=== PATIENT | female | born 1990 | race Caucasian/White ===

== ENCOUNTER 2018-10-20 16:53 | Inpatient (IN) | payer OTHER ==
[~2018-10-20 16:53] MED LIST: PRENATAL VITAM1 EAC7 PO
--- NOTE | 2018-10-20 18:58 | PR ---
[facility] [address], [place] [address] Signed Progress Notes IP Datetime Report Generated by CPN: 10/20/2018 18:57 PROGRESS NOTES: [id number] Impression: Normal progression of labor; Reassuring heart rate Procedures: Artificial ROM Plan: Continue present management Informed Consent Obtain: Vaginal Delivery Other Informed Consents: AROM VITAL SIGNS: [id number] Vital Signs: Reviewed EXAM: [id number] Dilatation: 8.0 Effacement: 85 Station: -1 Uterine Contractions: q5 minutes MEMBRANES: [id number] Membrane Status: Ruptured Amniotic Fluid Color: Clear Comments: Late note from 1820 Discussed AROM with pt. Pt understands and agrees. AROM performed without difficulty for moderate amount clear fluid. Pt and baby tolerated well. Continue expectant management and expect soon. Fetus A: [id number] FHR Baseline: 125 Variability: Moderate 6-25bpm Accelerations: 15X15 Decelerations: None FHR Category: Category I Presentation: Vertex Other Presentation: JOCELYN Comments on Fetus A: No evidence of metabolic acidosis Fetus B: [id number] Signing Physician: Nickie Flannery DO Copies: ~ *Electronically Signed* 10/20/181856 NICKIE FLANNERY DO PATIENT NAME: MARV BYRNE PROGRESS NOTE DATE OF : 89 PHYSICIAN: NICKIE FLANNERY DO RPT #: [id number] REPORT IS CONFIDENTIAL AND NOT TO BE RELEASED WITHOUT AUTHORIZATION
--- NOTE | 2018-10-21 07:32 | PR ---
[facility] [address] [place], [place] [address] Signed PP Progress Notes Datetime Report Generated by CPN: 10/21/2018 07:32 SUBJECTIVE: [id number] Pain: Within normal limits Nausea/Vomiting: Denies Flatus: Yes Bowel Movement: No Vital Signs: [id number] Vital Signs: Reviewed Notable Details: tachycardia overnight EXAM: [id number] Cardiovascular: Normal Respiratory: Normal Abdomen/Uterus: Normal Lochia: Normal Vulva/Perineum: Not Done Breasts: Not Done CVA Tenderness: Normal Extremities: Normal Incision: Not Applicable Progress: Normal Exam Comments: Fundus firm, U-2 nontender IMPRESSION/PLAN/PROCEDURES: [id number] Impression: Normal progression Plan: Continue present management Progress Notes: Pt seen and examined. Doing very well. Ambulating, voiding, tolerating full diet. Pain and lochia minimal. well. No lightheadedness/dizziness. No other complaints. Anticipate d/c home tomorrow. Signing Physician: Nickie Flannery DO Copies: ~ *Electronically Signed* 10/21/18 0732 NICKIE FLANNERY DO PATIENT NAME: MARV BYRNE RECORD #: [id number] PROGRESS NOTE DATE OF : [birth year] PHYSICIAN: NICKIE FLANNERY DO RPT #: [id number] REPORT IS CONFIDENTIAL AND NOT TO BE RELEASED WITHOUT AUTHORIZATION
== END 2018-10-21 19:25 | disposition home or self-care (01) | DRG 768 ==
LOC: FBCO → EDBD → FBCO 16:53 → FBC 17:24
PROVIDERS: ADMIT Obstetrics & Gynecology
PROC: 10E0XZZ Delivery of Products of Conception, External Approach (ICD-10-PCS; principal; 2018-10-20)
PROC: 0UQJXZZ Repair Clitoris, External Approach (ICD-10-PCS; 2018-10-20)
PROC: 0KQM0ZZ Repair Perineum Muscle, Open Approach (ICD-10-PCS; 2018-10-20)
PROC: 0UQMXZZ Repair Vulva, External Approach (ICD-10-PCS; 2018-10-20)
PROC: 10907ZC Drainage of Amniotic Fluid, Therapeutic from Products of Conception, Via Natural or Artificial Opening (ICD-10-PCS; 2018-10-20)
DX: O76 Abnormality in fetal heart rate and rhythm complicating labor and delivery (principal); Z37.0 Single live birth; D62 Acute posthemorrhagic anemia; O28.2 Abnormal cytological finding on antenatal screening of mother; Z3A.40 40 weeks gestation of pregnancy; O90.81 Anemia of the puerperium; O69.1XX0 Labor and delivery complicated by cord around neck, with compression, not applicable or unspecified; O71.82 Other specified trauma to perineum and vulva; O70.1 Second degree perineal laceration during delivery; O71.89 Other specified obstetric trauma; Z86.19 Personal history of other infectious and parasitic diseases
CPT/HCPCS: 36415; 85027; J2590

== ENCOUNTER 2021-07-05 17:02 | Emergency (ER) | payer OTHER ==
[~2021-07-05] VITALS: Ht 182.9 cm; Wt 74.8 kg
[2021-07-05] MEDS ORDERED: HYDROCODON-ACE1 EA10 PO (21:41)
== END 2021-07-05 22:25 | disposition home or self-care (01) ==
LOC: ED 17:02
DX: S52.501A Unspecified fracture of the lower end of right radius, initial encounter for closed fracture (principal); V00.221A Fall from sled, initial encounter
CPT/HCPCS: 29125; 73110; 99283-25

== ENCOUNTER 2024-08-08 05:42 | Day surgery (SDC) | payer OTHER ==
[2024-08-06 10:47] VITALS: BP 109/72
[~2024-08-08] VITALS: Ht 182.9 cm; Wt 83.0 kg
[~2024-08-08 05:42] MED LIST changes: +HYDROCODON-ACE1 EA10 PO; +LACTATED RINGER'S 1,000 ML IV SCH; +OMEPRAZOLE20 MG PO
[2024-08-08 05:59] VITALS: BP 109/62
[2024-08-08] MEDS ORDERED: CEPHALEXIN500 MG PO (06:02)
[2024-08-08] MEDS ORDERED: LACTATED RINGER'S 1,000 ML IV ONE (06:39)
[2024-08-08] MEDS ORDERED: MIDAZOLAM HCL 2 MG/2 ML VIAL ONE (06:39)
[2024-08-08] MEDS ORDERED: METOCLOPRAMIDE HCL 10 MG/2 ML SDV ONE (06:39)
[2024-08-08] MEDS ORDERED: KETOROLAC TROMETHAMINE 30 MG/ML VIAL ONE (06:39)
[2024-08-08] MEDS ORDERED: DEXAMETHASONE SOD PHOS 4 MG/ML VIAL ONE ×2 (06:39→06:42)
[2024-08-08] MEDS ORDERED: propofoL 200 MG/20 ML VIAL ONE ×2 (06:39→09:05)
[2024-08-08] MEDS ORDERED: ondansetron HCL 4 MG/2 ML VIAL ONE (06:39)
[2024-08-08] MEDS ORDERED: FAMOTIDINE 20 MG/ 2 ML VIAL ONE (06:40)
[2024-08-08] MEDS ORDERED: fentaNYL citrate 100 MCG/2 ML VIAL ONE (06:40)
[2024-08-08] MEDS ORDERED: KETAMINE in NS 50 MG/5 ML SYR ONE (06:40)
[2024-08-08] MEDS ORDERED: LIDOCAINE HCL 2% 20 ML MDV ONE (06:42)
[2024-08-08] MEDS ORDERED: Ropivacaine HCl 0.5% 30 ML VIAL ONE (06:42)
[2024-08-08] MEDS ORDERED: IBLOOD GLUCOSE TEST STRIP 1 EA TEST VI PRN ×2 (07:00→07:45)
[2024-08-08] MEDS ORDERED: CEFAZOLIN SODIUM 1 GM/10 ML SYR IV SCH (07:00)
[2024-08-08] MEDS ORDERED: LIDOCAINE HCL 1% 5 ML SDV INJ ONE (07:00)
--- NOTE | 2024-08-08 07:21 | NUR ---
PT NOT AVAILABLE FOR VISIT. PROVIDED PRAYER.
[2024-08-08] MEDS ORDERED: MORPHINE SULFATE 10 MG/ML VIAL IV PRN (07:45)
[2024-08-08] MEDS ORDERED: NALOXONE HCL 0.4 MG SYR IV PRN (07:45)
[2024-08-08] MEDS ORDERED: METOCLOPRAMIDE HCL 10 MG/2 ML SDV IV PRN (07:45)
[2024-08-08] MEDS ORDERED: fentaNYL citrate 50 MCG/ML SDV IV PRN (07:45)
[2024-08-08] MEDS ORDERED: PROCHLORPERAZINE EDISYLATE 10 MG/2 ML VIAL IV PRN (07:45)
[2024-08-08] MEDS ORDERED: ondansetron HCL 4 MG/2 ML VIAL IV PRN (07:45)
[2024-08-08] MEDS ORDERED: droPERidol 5 MG/2 ML VIAL IV PRN (07:45)
[2024-08-08] MEDS ORDERED: MORPHINE SULFATE 10 MG/ML VIAL ONE (09:12)
--- NOTE | 2024-08-08 10:31 | NUR ---
08/08/24 Denise1 Jocelynn Nava 0953-PATIENT ARRIVED TO PACU ON 10L MASK NONAROUSABLE ORAL AIRWAY IN PLACE. SR. IVF INFUSING. CAP REFILL TO RIGHT FOOT LESS THAN 2 SECONDS. WARM DRESSING TO RIGHT FOOT CDI 0954-PATIENT STARTING TO AROUSES AMEENA DEMI CHEF REMOVED ORAL AIRWAY. 6L MASK RR EVEN ORIENTED TO PACU. 1000-PATIENT REPORTS FEELS" GROGGY" DENIES PAIN OR NAUSEA.HOB ELEVATED PLACED ON RA RR EVEN GREATER THAN 95% GIVEN GLASSES. PATIENT ABLE TO TURN TO LEFT SIDE AND BEDPAN PLACED. PATIENT REMAINS VERY DROWSY REPORTS NUMBNESS TO FOOT. HOB 1005-PATIENT UNABLE TO VOID REMAINS VERY DROWSY BEDPAN REMOVED. RA 100% RR EVEN. EDUCATED ABOUT WAKING UP A LITTLE MORE BEFORE USING COMMODE. 1009-XRAY AT BEDSIDE. 1016-PATIENT SAT UP ON SIDE OF BED REMAINS DROWSY DENIES PAIN OR NAUSEA. RA 100% THIS RN AND INDUSTRIAL PHARMACIST RN ASSISTED PATIENT TO STAND PIVOT TO COMMODE. PATIENT IS NONWEIGHT BEARING ON RIGHT FOOT. 1019-PATIENT RETURNED TO BED AND REPOSITIONED. PATIENT VOIDED CLOSED TO 1 LITER YELLOW URINE. HOB ELEVATED RA 99% RR EVEN. PATIENT TALKING TO STAFF. DENIES PAIN OR NAUSEA. RIGHT FOOT ELEVATED ON PILLOW AND ICE APPLIED
[2024-08-08 10:55] VITALS: BP 106/58
--- NOTE | 2024-08-08 10:55 | NUR ---
PT ARRIVES TO DS DEPT FROM PACU VIA STRETCHER. PT IS A&O AND ASKING QUESTIONS APPROPRIATELY. PT REPORTS MINOR "FOGGYNESS". PT DRINKING WATER WITHOUT DIFFICULTY OR ONSET OF NAUSEA. PT ON RA W/O2 >90% VIA PULSE OX, RESPIRATIONS EVEN AND UNLABORED, NO SIGNS OF DISTRESS. FREDRICK CALLED TO UPDATE ON PT. REPORT RECEIVED FROM FREDRICK RN, SURGICAL SITE DRESSING VISUALIZED W/FREDRICK RN. PT REPORTS NO FURTHER NEEDS OR QUESTIONS AT THIS TIME. CALL LIGHT WITHIN REACH, PERSONAL BELONGINGS WITHIN REACH.
--- NOTE | 2024-08-08 13:17 | NUR ---
1125-PT DOING WELL AND IS READY TO GO HOME. PT GETTING DRESSED WITH . IN ROOM. BOOT PLACED ON RIGHT FOOT BY NAYA GARCIA. 1137-PROVIDED PT AND WITH DISCHARGE INSTRUCTIONS. ALL QUESTIONS ANSWERED. PT TRANSFERS SELF FROM BED TO WHEELCHAIR. RIDE PROVIDED TO FRONT OF HOSPITAL WHERE CAR WAS WAITING. PT TRANSFERS SELF TO CAR.
--- NOTE | 2024-08-09 17:01 | OR ---
[facility] [address] [place], [place] [address] Signed DATE OF OPERATION: 08/08/2024 SURGEON: Jerome Christie DPM PREOPERATIVE DIAGNOSES: 1. Hallux valgus, right foot. 2. Bunion, right foot. POSTOPERATIVE DIAGNOSES: 1. Hallux valgus, right foot. 2. Bunion, right foot. INSIDE SALES ADVERTISING EXECUTIVE SURGEON: Paulette Nina DPM. ANESTHESIA: IV general with local block right foot. OUTREACH REPRESENTATIVE: Adelso Vizcarra. SPECIMEN TO PATHOLOGY: None. PROCEDURES: 1. Lapidus bunionectomy, right foot. 2. Chas osteotomy, right hallux. DESCRIPTION OF PROCEDURE: The patient was brought to the operating room and placed on the table in the supine position. Anesthesia Department administered IV sedation after which a local block was given to the right foot using a total of 10 mL 1:1 mixture of 2% lidocaine plain and 0.5% ropivacaine plain. The right leg and foot was then prepped and draped in the usual sterile manner and an Esmarch was used for hemostasis. PROCEDURE #1 Attention was initially directed to the dorsal/medial aspect right 1st MTPJ where a linear longitudinal incision was made approximately 1 cm medial to the extensor hallucis longus tendon. The incision was initially full-thickness through the dermis then deepened through subcutaneous tissue using careful dissection and cautery as necessary Electronically Signed By: JEROME CHRISTIE DPM 08/09/24 1701 PATIENT NAME: MARV CASTRO OPERATIVE REPORT DATE OF : 89 REPORT #: [id number] PHYSICIAN: JEROME CHRISTIE DPM PCP: CHARIS IVORY PA-C REPORT IS CONFIDENTIAL AND NOT TO BE RELEASED WITHOUT AUTHORIZATION [facility] [address] [place], [place] [address] Signed for hemostasis. Once at the level of deep fascia and joint capsule, the incision was deepened to bone and soft tissues reflected medially to expose the 1st metatarsal head. Power instrumentation was then used to remove 2-3 mm of bone from the medial 1st metatarsal head. At this time, attention was redirected to the 1st intermetatarsal space where a lateral release was performed. The incision site at this time was extended proximally and this was to expose the 1st metatarsal-cuneiform joint area for fusion at this site. Soft tissues were reflected medially and laterally to fully expose the joint. The joint was then opened and a joint distractor utilized. Hand and power instrumentation used to remodel the joint surfaces, removing cartilage and preparing the joint for fusion. Joint surfaces were then drilled to promote fusion and the 1st metatarsal then temporarily fixated with K-wires and a five hole plate utilized with two screws proximal and two screws distal, with a crossing screw extending into 2nd cuneiform, for a total of five screws. PROCEDURE #2 At this time, the position and alignment to the 1st metatarsal and hallux was assessed, and a hallux valgus position noted due to lateral deviation within the hallux, therefore a hallux osteotomy was performed to improve the alignment and position to the right hallux. The osteotomy was at the base of the proximal phalanx, right hallux, leaving the lateral cortex intact as a hinge removing about a 3 mm wedge of bone. This was then fixated using a bone staple. Surgical site was then irrigated with copious amounts of normal saline. Capsule and deep fascia then closed using 3-0 Vicryl. Subcutaneous tissues closed using 4-0 Vicryl and skin closed using skin rebecca. Surgical site was dressed with Adaptic, Betadine-soaked gauze, Kerlix fluffs, Flexicon, and Coban. The dressings were utilized to splint the position to the toe as well as to provide mild compression. INTRAOPERATIVE COMPLICATIONS: None. ESTIMATED BLOOD LOSS: Less than 5 mL. The patient tolerated the procedure and the anesthesia well and left the operating room Electronically Signed By: JEROME CHRISTIE DPM 08/09/24 1701 PATIENT NAME: MARV CASTRO OPERATIVE REPORT DATE OF : 89 REPORT #: [id number] PHYSICIAN: JEROME CHRISTIE DPM PCP: CHARIS IVORY PA-C REPORT IS CONFIDENTIAL AND NOT TO BE RELEASED WITHOUT AUTHORIZATION [address] [address] Signed with vital signs stable and vascular status intact to the right foot as evidenced by hyperemia with removal of the Esmarch. However, the right hallux took an additional 3-5 minutes to regain color. АНДРЕЙ Amaro/MODL /[id number] Copies: ~ Electronically Signed By: JEROME CHRISTIE DPM 08/09/24 1701 PATIENT NAME: MARV CASTRO OPERATIVE REPORT DATE OF : 89 REPORT #: [id number] PHYSICIAN: JEROME CHRISTIE DPM PCP: CHARIS IVORY PA-C REPORT IS CONFIDENTIAL AND NOT TO BE RELEASED WITHOUT AUTHORIZATION
== END 2024-08-08 11:37 | disposition home or self-care (01) ==
LOC: DS 05:42
PROVIDERS: ATTEND Podiatrist Foot Surgery
PROC: 0QSN04Z Reposition Right Metatarsal with Internal Fixation Device, Open Approach (ICD-10-PCS; principal; 2024-08-08 07:00)
DX: M20.11 Hallux valgus (acquired), right foot (principal); M21.611 Bunion of right foot
CPT/HCPCS: 01480; 73630; C1713; J0690; J1100; J1885; J2250; J2270; J2405; J2704; J2765; J2795; J3010; J3490; J7121